=== PATIENT | male | born 1980 | race Caucasian/White ===

== ENCOUNTER 2017-10-16 21:35 | Inpatient (IN) | payer BC, OTHER ==
[~2017-10-16] VITALS: Ht 167.6 cm; Wt 62.1 kg
[2017-10-16 22:00] VITALS: BP 122/61
[2017-10-16] MEDS ORDERED: LOPERAMIDE HCL 2 MG CAPSULE PO PRN ×2 (22:00)
[2017-10-16] MEDS ORDERED: BUPRENORPHINE HCL 2 MG TAB.SUBL SL PRN (22:00)
[2017-10-16] MEDS ORDERED: ACETAMINOPHEN 325 MG TABLET PO PRN (22:00)
[2017-10-16] MEDS ORDERED: MIRALAX 17 GM POWD.PACK PO PRN (22:00)
[2017-10-16] MEDS ORDERED: ONDANSETRON ODT 4 MG TAB.RAPDIS SL PRN (22:00)
[2017-10-16] MEDS ORDERED: MAGNESIUM HYDROXIDE 30 ML LIQUID UDC PO PRN (22:00)
[2017-10-16] MEDS ORDERED: MAG HYDROX/AL HYDROX/SIMETH 30 ML LIQUID UDC PO PRN (22:00)
[2017-10-16] MEDS ORDERED: ONDANSETRON 4 MG/2 ML VIAL IM PRN (22:00)
[2017-10-16] MEDS ORDERED: DICYCLOMINE HCL 20 MG TABLET PO PRN (22:00)
[2017-10-16 22:27] LABS: BASOPHILS # (AUTO) 0.1 K/uL (0.0-8.0); BASOPHILS % (AUTO) 0.8 % (0.0-2.0); EOSINOPHILS # (AUTO) 0.5 K/uL (0.0-0.7); EOSINOPHILS % (AUTO) 4.5 % (0.0-7.0); HEMATOCRIT 43.8 % (36.7-47.1); HEMOGLOBIN 15.1 g/dL (12.5-16.3); LYMPHOCYTES # (AUTO) 2.7 K/uL (20.0-40.0); LYMPHOCYTES % (AUTO) 24.4 % (20.5-51.5); MEAN CORPUSCULAR HEMOGLOBIN 31.9 uug (23.8-33.4); MEAN CORPUSCULAR HGB CONC 34 g/dL (32.5-36.3); MEAN CORPUSCULAR VOLUME 92.7 fL (73.0-96.2); MONOCYTES # (AUTO) 0.9 K/uL (2.0-10.0); NEUTROPHILS # (AUTO) 6.8 K/uL (1.8-8.9); NEUTROPHILS % (AUTO) 62.3 % (38.5-71.5); PLATELET COUNT (AUTO) 286 K/uL (152-348); RED BLOOD CELL COUNT(AUTO) 4.73 MIL/uL (4.06-5.63); WHITE BLOOD COUNT (AUTO) 10.9 K/uL (3.6-10.2)
[2017-10-16 22:44] LABS: ALANINE AMINOTRANSFERASE 16 U/L (16-63); ALKALINE PHOSPHATASE 82 U/L (50-136); AMYLASE 58 U/L (25-115); ASPARTATE AMINOTRANSFERASE 11 U/L (15-37); BILIRUBIN,TOTAL 0.2 mg/dL (0.2-1.0); CARBON DIOXIDE 26 mmol/L (21-32); CHLORIDE 104 mmol/L (98-107); CREATININE 1.3 mg/dL (0.6-1.3); GLUCOSE 131 mg/dL (74-106); LIPASE 133 U/L (73-393); POTASSIUM 4.3 mmol/L (3.5-5.1); TOTAL PROTEIN, SERUM 7.4 g/dL (6.4-8.2); UREA NITROGEN, BLOOD 16 mg/dL (7-18)
[2017-10-16 22:50] LABS: THYROID STIMULATING HORMONE 1.109 mIU/mL (0.358-3.740)
[2017-10-16 23:00] LABS: ETHANOL < 3 MG/DL (0-0)
[2017-10-16] MEDS ORDERED: CEPH-570 PO (23:36)
[2017-10-16] MEDS ORDERED: SULF1TAB48 PO (23:36)
[2017-10-16] MEDS ORDERED: IBUP-1957 PO (23:36)
[2017-10-16] MEDS: METHOCARBAMOL 750 MG TABLET PO PRN (23:45)
[2017-10-16] MEDS ORDERED: SULFAMETH/TRIMETH 800/160 MG TABLET PO ONE (23:45)
[2017-10-16] MEDS ORDERED: CEPHALEXIN MONOHYDRATE 500 MG CAPSULE PO ONE (23:45)
[2017-10-16] MEDS: IBUPROFEN 400 MG TABLET PO PRN (23:45)
[2017-10-17] VITALS: BP 113/66
[2017-10-17] MEDS ORDERED: DIAZEPAM 5 MG TABLET PO PRN (02:30)
[2017-10-17] MEDS ORDERED: DIAZEPAM 10 MG TABLET PO PRN ×2 (02:30)
[2017-10-17] MEDS ORDERED: LORAZEPAM 2 MG/1 ML VIAL IM PRN (02:30)
[2017-10-17 04:00] VITALS: BP 111/70
[2017-10-17 08:00] VITALS: BP 128/72
[2017-10-17 08:12] LABS: *AMPHETAMINE, URINE NEGATIVE (NEGATIVE); *BARBITURATE, URINE NEGATIVE (NEGATIVE); *CANNABINOID, URINE POSITIVE (NEGATIVE); *COCCAINE, URINE NEGATIVE (NEGATIVE); *OPIATE, URINE POSITIVE (NEGATIVE); *PHENCYCLIDINE SCREEN,URINE NEGATIVE (NEGATIVE)
[2017-10-17] MEDS ORDERED: TUBERCULIN,PURIF.PROT.DERIV. 5 TU/0.1 ML TEST ID ONE (09:00)
[2017-10-17] MEDS: MULTIVITAMINS,THERAPEUTIC TABLET PO SCH (09:00)
[2017-10-17] MEDS: METHOCARBAMOL 750 MG TABLET PO PRN (09:04)
[2017-10-17] MEDS: IBUPROFEN 400 MG TABLET PO PRN ×2 (09:04→14:00)
[2017-10-17 12:00] VITALS: BP 113/63
[2017-10-17] MEDS: CEPHALEXIN MONOHYDRATE 500 MG CAPSULE PO SCH ×2 (13:04→21:17)
[2017-10-17] MEDS: SULFAMETH/TRIMETH 800/160 MG TABLET PO SCH ×2 (13:04→20:13)
[2017-10-17] MEDS: DICYCLOMINE HCL 20 MG TABLET PO SCH ×3 (14:30→20:13)
[2017-10-17 16:00] VITALS: BP 118/70
[2017-10-17 20:00] VITALS: BP 125/72
[2017-10-17] MEDS: diphenhydrAMINE 50 MG CAPSULE PO PRN (21:18)
[2017-10-17] MEDS: NEOMY/BACITRAC/POLYMI OINT 28.35 GM TUBE TOP SCH (21:19)
[2017-10-18] VITALS: BP 128/75
[2017-10-18 04:00] VITALS: BP 125/77
[2017-10-18] MEDS: CEPHALEXIN MONOHYDRATE 500 MG CAPSULE PO SCH ×2 (06:20→13:25)
[2017-10-18 07:08] LABS: HEPATITIS B SURFACE AG Negative (Negative)
[2017-10-18 08:00] VITALS: BP 114/79
[2017-10-18] MEDS ORDERED: NEOMY/BACITRA/POLYMYXIN B OINT UD PACKET TP SCH (09:00)
[2017-10-18] MEDS ORDERED: 5 DAY TAPER BUPRENORPHINE -SERENITY PROTOCOL SL PRN (09:00)
[2017-10-18] MEDS: SULFAMETH/TRIMETH 800/160 MG TABLET PO SCH ×2 (09:06→21:53)
[2017-10-18] MEDS: DICYCLOMINE HCL 20 MG TABLET PO SCH ×3 (09:06→21:53)
[2017-10-18] MEDS: BUPRENORPHINE HCL 2 MG TAB.SUBL SL SCH ×4 (09:06→21:55)
[2017-10-18] MEDS: IBUPROFEN 400 MG TABLET PO PRN ×2 (09:06→21:53)
[2017-10-18] MEDS: MULTIVITAMINS,THERAPEUTIC TABLET PO SCH (09:06)
[2017-10-18] MEDS: METHOCARBAMOL 750 MG TABLET PO PRN (09:06)
[2017-10-18] MEDS: NEOMY/BACITRAC/POLYMI OINT 28.35 GM TUBE TOP SCH ×2 (09:07→16:47)
[2017-10-18 12:00] VITALS: BP 118/73
[2017-10-18 16:00] VITALS: BP 140/88
[2017-10-18 20:00] VITALS: BP 121/76
[2017-10-18] MEDS: diphenhydrAMINE 50 MG CAPSULE PO PRN (21:53)
[2017-10-18] MEDS: CLONIDINE HCL 0.1 MG TABLET PO PRN (21:54)
[2017-10-19] VITALS: BP 118/78
[2017-10-19 04:00] VITALS: BP 114/72
[2017-10-19 08:00] VITALS: BP 117/68
[2017-10-19] MEDS: BUPRENORPHINE HCL 2 MG TAB.SUBL SL SCH ×3 (08:55→21:12)
[2017-10-19] MEDS: DICYCLOMINE HCL 20 MG TABLET PO SCH ×3 (08:55→21:12)
[2017-10-19] MEDS: MULTIVITAMINS,THERAPEUTIC TABLET PO SCH (08:55)
[2017-10-19] MEDS: NEOMY/BACITRAC/POLYMI OINT 28.35 GM TUBE TOP SCH ×2 (08:57→16:13)
[2017-10-19 12:00] VITALS: BP 121/83
[2017-10-19 16:00] VITALS: BP_SYST 126; BP_SYST 78; BP_DIAS 78
[2017-10-19 20:00] VITALS: BP 112/64
[2017-10-20] VITALS: BP 121/66
[2017-10-20] MEDS: diphenhydrAMINE 50 MG CAPSULE PO PRN ×2 (02:21→21:27)
[2017-10-20] MEDS: CLONIDINE HCL 0.1 MG TABLET PO PRN ×2 (02:21→21:27)
[2017-10-20 04:00] VITALS: BP 118/66
[2017-10-20 08:00] VITALS: BP 109/51
[2017-10-20] MEDS ORDERED: BUPRENORPHINE HCL 2 MG TAB.SUBL SL SCH (09:00)
[2017-10-20] MEDS: NEOMY/BACITRAC/POLYMI OINT 28.35 GM TUBE TOP SCH ×2 (09:34→17:00)
[2017-10-20] MEDS: DICYCLOMINE HCL 20 MG TABLET PO SCH ×3 (09:34→21:27)
[2017-10-20] MEDS: MULTIVITAMINS,THERAPEUTIC TABLET PO SCH (09:34)
[2017-10-20 12:00] VITALS: BP 118/64
[2017-10-20] MEDS: BUPRENORPHINE HCL 2 MG TAB.SUBL SL SCH ×2 (14:31→21:26)
[2017-10-20 16:00] VITALS: BP 122/63
[2017-10-20 20:00] VITALS: BP 128/95
[2017-10-21 08:00] VITALS: BP 96/50
[2017-10-21] MEDS: DICYCLOMINE HCL 20 MG TABLET PO SCH ×3 (09:05→22:03)
[2017-10-21] MEDS: MULTIVITAMINS,THERAPEUTIC TABLET PO SCH (09:05)
[2017-10-21] MEDS: BUPRENORPHINE HCL 2 MG TAB.SUBL SL SCH ×3 (09:05→22:03)
[2017-10-21] MEDS: NEOMY/BACITRAC/POLYMI OINT 28.35 GM TUBE TOP SCH ×2 (09:06→17:08)
[2017-10-21 12:00] VITALS: BP 123/73
[2017-10-21 16:00] VITALS: BP 120/62
[2017-10-21 20:00] VITALS: BP 129/80
[2017-10-21] MEDS: diphenhydrAMINE 50 MG CAPSULE PO PRN (22:03)
[2017-10-21] MEDS: CLONIDINE HCL 0.1 MG TABLET PO PRN (22:04)
[2017-10-22 08:00] VITALS: BP 102/62
[2017-10-22] MEDS: MULTIVITAMINS,THERAPEUTIC TABLET PO SCH (08:27)
[2017-10-22] MEDS: DICYCLOMINE HCL 20 MG TABLET PO SCH ×3 (08:27→21:06)
[2017-10-22] MEDS: NEOMY/BACITRAC/POLYMI OINT 28.35 GM TUBE TOP SCH ×2 (08:38→16:17)
[2017-10-22] MEDS ORDERED: BUPRENORPHINE HCL 2 MG TAB.SUBL SL SCH (09:00)
[2017-10-22 12:00] VITALS: BP 117/66
[2017-10-22 16:00] VITALS: BP 116/76
[2017-10-22 20:00] VITALS: BP 130/81
[2017-10-22] MEDS: diphenhydrAMINE 50 MG CAPSULE PO PRN (21:06)
[2017-10-23 08:00] VITALS: BP 117/63
[2017-10-23] MEDS: MULTIVITAMINS,THERAPEUTIC TABLET PO SCH (08:39)
[2017-10-23] MEDS: DICYCLOMINE HCL 20 MG TABLET PO SCH ×3 (08:39→21:53)
[2017-10-23] MEDS: NEOMY/BACITRAC/POLYMI OINT 28.35 GM TUBE TOP SCH (08:39)
[2017-10-23] MEDS ORDERED: IBUPROFEN 600 MG TABLET PO PRN (11:00)
[2017-10-23 12:14] VITALS: BP 124/73
[2017-10-23] MEDS: GABAPENTIN 300 MG CAPSULE PO SCH ×2 (14:02→21:53)
[2017-10-23 16:00] VITALS: BP 127/78
[2017-10-23] MEDS ORDERED: DICY20TA28 PO (19:05)
[2017-10-23] MEDS ORDERED: IBUP-1955 PO (19:05)
[2017-10-23] MEDS ORDERED: GABA-534 PO (19:05)
[2017-10-23] MEDS ORDERED: CLON0.1T14 PO (19:05)
[2017-10-23] MEDS ORDERED: DIPH50CA37 PO (19:05)
[2017-10-23] MEDS ORDERED: METH-406 PO (19:05)
[2017-10-23 20:30] VITALS: BP 122/75
[2017-10-23] MEDS: diphenhydrAMINE 50 MG CAPSULE PO PRN (21:53)
[2017-10-23] MEDS: CLONIDINE HCL 0.1 MG TABLET PO SCH (21:53)
[2017-10-24 00:06] VITALS: BP 121/64
[2017-10-24 04:15] VITALS: BP 116/73
[2017-10-24 07:57] VITALS: BP 102/63
[2017-10-24 08:02] VITALS: BP 102/63
[2017-10-24] MEDS: DICYCLOMINE HCL 20 MG TABLET PO SCH (08:18)
[2017-10-24] MEDS: MULTIVITAMINS,THERAPEUTIC TABLET PO SCH (08:18)
[2017-10-24] MEDS: GABAPENTIN 300 MG CAPSULE PO SCH (08:18)
[2017-10-24] MEDS: CLONIDINE HCL 0.1 MG TABLET PO SCH (08:19)
== END 2017-10-24 09:30 | DRG 895 ==
LOC: SRC 21:35
PROVIDERS: ADMIT Internal Medicine; ATTEND Internal Medicine
PROC: HZ2ZZZZ Detoxification Services for Substance Abuse Treatment (ICD-10-PCS; principal; 2017-10-16)
PROC: HZ31ZZZ Individual Counseling for Substance Abuse Treatment, Behavioral (ICD-10-PCS; 2017-10-19)
PROC: HZ41ZZZ Group Counseling for Substance Abuse Treatment, Behavioral (ICD-10-PCS; 2017-10-21)
DX: F11.23 Opioid dependence with withdrawal (principal); S21.201A Unspecified open wound of right back wall of thorax without penetration into thoracic cavity, initial encounter; B19.20 Unspecified viral hepatitis C without hepatic coma; F17.210 Nicotine dependence, cigarettes, uncomplicated; X58.XXXA Exposure to other specified factors, initial encounter; Y92.199 Unspecified place in other specified residential institution as the place of occurrence of the external cause; F13.230 Sedative, hypnotic or anxiolytic dependence with withdrawal, uncomplicated; I10 Essential (primary) hypertension; F41.9 Anxiety disorder, unspecified; L08.9 Local infection of the skin and subcutaneous tissue, unspecified; J45.20 Mild intermittent asthma, uncomplicated; R73.9 Hyperglycemia, unspecified
CPT/HCPCS: 36415; 70030-TC; 80307; 80349; 80361; 83690; 83735; 84443; 85025; 86580; 86592; 86705; 86803; 87070; 87340; 87806; A4663; G0480; Q0162; Q0163